=== PATIENT | female | born 1995 ===

== ENCOUNTER 2019-06-26 08:09 | Inpatient (IN) | payer MEDICAID ==
[~2019-06-26 08:09] MED LIST: cefOXitin 2 GM Vial ONE
[2019-06-26] MEDS ORDERED: cefOXitin 2 GM in Sodium Chloride 0.9% 100 ML IV ONE (08:30)
[2019-06-26] MEDS ORDERED: Scopolamine 1.5 MG Transdermal Patch TOP ONE (08:40)
[2019-06-26] MEDS ORDERED: Acetaminophen 500 MG Tab PO ONE (08:40)
[2019-06-26] MEDS ORDERED: Celecoxib 200 MG Cap PO ONE (08:40)
[2019-06-26] MEDS ORDERED: Gabapentin 300 MG Cap PO ONE (08:50)
[2019-06-26] MEDS ORDERED: Dextrose 5%-Lactated Ringers 1,000 ML IV SCH ×2 (08:50→14:30)
[2019-06-26 08:59] LABS: HEMOGLOBIN A1C 6.5 % (4.5-6.2)
[2019-06-26] MEDS ORDERED: Propofol 200 MG/20 ML SDV ONE (09:58)
[2019-06-26] MEDS ORDERED: Rocuronium 50 MG/5 ML Vial ONE (09:58)
[2019-06-26] MEDS ORDERED: fentaNYL 250 MCG/5 ML SDV ONE (09:58)
[2019-06-26] MEDS ORDERED: Glycopyrrolate 0.2 MG/ML 5 ML MDV ONE (09:58)
[2019-06-26] MEDS ORDERED: Dexamethasone 4 MG/ML SDV ONE (09:58)
[2019-06-26] MEDS ORDERED: Ondansetron 4 MG/2 ML SDV ONE (09:58)
[2019-06-26] MEDS ORDERED: Midazolam 1 MG/ML 2 ML SDV ONE (09:58)
[2019-06-26] MEDS ORDERED: Neostigmine Methylsulfate 1 MG/ML 5 ML Syringe ONE (09:58)
[2019-06-26] MEDS ORDERED: Succinylcholine 200 MG/10 ML MDV ONE (09:58)
[2019-06-26] MEDS ORDERED: cefOXitin 2 GM in Sodium Chloride 0.9% 50 ML IV ONE (10:00)
[2019-06-26] MEDS ORDERED: Ketamine 50 MG in Sodium Chloride 0.9% 49.5 ML IV SCH (10:15)
[2019-06-26] MEDS ORDERED: Lidocaine 2% 100 MG/5 ML Syringe IVPUSH SCH (10:15)
[2019-06-26] MEDS ORDERED: Ketamine 500 MG/5 ML MDV IV SCH (10:15)
[2019-06-26] MEDS ORDERED: hydrOXYzine HCL 100 MG/2 ML SDV IM ONE (12:22)
[2019-06-26] MEDS ORDERED: fentaNYL 100 MCG/2 ML SDV IVPUSH ONE ×2 (12:22→12:53)
[2019-06-26] MEDS ORDERED: Ondansetron 4 MG/2 ML SDV IVPUSH ONE (12:23)
[2019-06-26] MEDS: Lidocaine 0.4%/D5W 2 GM/500 ML BAG IV SCH (14:12)
[2019-06-26] MEDS ORDERED: Metoclopramide 10 MG/2 ML SDV IVPUSH PRN (14:20)
[2019-06-26] MEDS ORDERED: diphenhydrAMINE 50 MG/ML SDV IVPUSH PRN (14:20)
[2019-06-26] MEDS ORDERED: hydrOXYzine HCL 100 MG/2 ML SDV IM PRN (14:20)
[2019-06-26] MEDS ORDERED: Ondansetron 4 MG/2 ML SDV IVPUSH PRN (14:20)
[2019-06-26] MEDS: HYDROmorphone 1 MG/ML Syringe IV PRN ×2 (14:32→16:59)
[2019-06-26] MEDS: Labetalol 20 MG/4 ML Syringe IVPUSH PRN ×5 (14:47→16:44)
[2019-06-26] MEDS: Heparin Sodium 5,000 Units/ML Vial SUBCUT SCH (16:41)
[2019-06-26] MEDS: Acetaminophen Soln 650 MG/20.3 ML UD Cup PO SCH ×2 (16:41→21:45)
[2019-06-26] MEDS: Pantoprazole 40 MG Vial IVPUSH SCH (16:45)
[2019-06-26] MEDS: cefOXitin 2 GM in Sodium Chloride 0.9% 50 ML IV SCH ×2 (16:52→21:45)
[2019-06-26] MEDS: MVI, Adult with Vitamin K 10 ML, Thiamine 200 MG, Chromium/Copper/Mang/Selen/Zn 1 ML in... IV SCH ×4 (16:53)
[2019-06-26] MEDS: Insulin Lispro 100 Unit/ML 3 ML KwikPen SUBCUT PRN ×2 (17:12→21:46)
[2019-06-26] MEDS ORDERED: hydrALAZINE 20 MG/ML SDV IVPUSH PRN (18:54)
[2019-06-26] MEDS: metFORMIN 500 MG/5 ML PO SCH (19:25)
--- NOTE | 2019-06-26 19:48 | PCM.CONS ---
H&P History of Present Illness - General Date of Service: 06/26/19 Admit Problem/Dx: Admission Diagnosis/Problem Admission Diagnosis/Problem Keira-en-Y gastrojejunostomy Source of Information: Patient, Provider, RN Notes Reviewed History Limitations: Reports: No Limitations - History of Present Illness Initial Comments - Free Text/Narative: Ms. Rosa is a 23-year-old woman who I been asked to see by Dr. Shah for recommendations concerning postoperative hypertension. Ms. Rosa underwent Keira -en-Y gastric bypass surgery earlier today by Dr. Shah. During the postoperative period she has been noted to have significant hypertension, especially diastolic levels. She reports history of 2 previous surgeries and in the immediate postoperative period also experienced hypertension with those 2 procedures. She otherwise feels well reports that her pain control is very good. She is not experiencing any neurologic symptoms, chest pain, or shortness of breath. Abdomen Pain Score (Numeric/FACES): 7 - Related Data Allergies/Adverse Reactions: Allergies Allergy/AdvReac Type Severity Reaction Status Date / Time Penicillins Allergy Hives Verified 06/26/19 08:33 Home Medications: Home Meds Exenatide [Byetta] 10 mcg SQ BID 06/19/16 [History] Biotin 0.5 gm MC DAILY 06/23/19 [History] Cholecalciferol (Vitamin D3) [Vitamin D3] 3,000 unit PO DAILY 06/23/19 [History] Insulin NPH Human Isophane [Novolin N] 15 unit SQ BID 06/23/19 [History] Magnesium Oxide 250 mg PO DAILY 06/23/19 [History] Multivitamin [Multi-Vitamin Daily] 1 each PO DAILY 06/23/19 [History] Pregabalin [Lyrica] 150 mg PO BID 06/23/19 [History] Rosuvastatin [Crestor] 5 mg PO DAILY 06/23/19 [History] hydrOXYzine HCL [Hydroxyzine HCl] 10 mg PO TID PRN 06/23/19 [History] metFORMIN [Glucophage] 1,000 mg PO BIDMEALS 06/23/19 [History] Celecoxib [CeleBREX] 200 mg PO DAILY 06/26/19 [History] Past Medical History HEENT History: Reports: Impaired Vision Cardiovascular History: Reports: None Respiratory History: Reports: None Gastrointestinal History: Reports: None Genitourinary History: Reports: None GUT CLEANER History: Reports: None Musculoskeletal History: Reports: Back Pain, Chronic Neurological History: Reports: None Psychiatric History: Reports: Anxiety, Depression Endocrine/Metabolic History: Reports: Diabetes, Type II, Obesity/BMI 30+ Hematologic History: Reports: None Immunologic History: Reports: None Oncologic (Cancer) History: Reports: None Dermatologic History: Reports: None - Infectious Disease History Infectious Disease History: Reports: None - Past Surgical History HEENT Surgical History: Reports: None Cardiovascular Surgical History: Reports: None Respiratory Surgical History: Reports: None GI Surgical History: Reports: None Female Surgical History: Reports: None Neurological Surgical History: Reports: Laminectomy Musculoskeletal Surgical History: Reports: None Dermatological Surgical History: Reports: None Social & Family History - Family History Family Medical History: Noncontributory Cardiac: Reports: Hypertension Respiratory: Reports: None Psychiatric: Reports: Depression Endocrine/Metabolic: Reports: Diabetes, type II Oncologic: Reports: Cervix - Tobacco Use Smoking Status *Q: Former Smoker Used Tobacco, but Quit: Yes Month/Year Tobacco Last Used: 03/2019 - Caffeine Use Caffeine Use: Reports: None - Recreational Drug Use Recreational Drug Use: No H&P Review of Systems - Review of Systems: Review Of Systems: See Below Pulmonary: Reports: No Symptoms Cardiovascular: Reports: No Symptoms Gastrointestinal: Reports: Abdominal Pain. Denies: Constipation, Diarrhea, Difficulty Swallowing, Distension, Hematemesis, Hematochezia, Melena, Nausea, Vomiting Genitourinary: Reports: No Symptoms Exam - Exam Exam: See Below - Vital Signs Vital Signs: Last Vital Signs Temp 99.1 F 06/26/19 19:26 Pulse 112 H 06/26/19 19:26 Resp 18 06/26/19 19:26 BP 130/76 06/26/19 19:26 Pulse Ox 93 L 06/26/19 19:26 Weight: 291 lb - Exam General: Alert, Oriented, Cooperative, Mild Distress Neck: Supple, Trachea Midline, +2 Carotid Pulse wo Bruit Lungs: Clear to Auscultation, Normal Respiratory Effort Cardiovascular: Regular Rate, Regular Rhythm, Normal S1, Normal S2. No: Systolic Murmur, Diastolic Murmur GI/Abdominal Exam: Soft, No Organomegaly, Tender. No: Distended, Guarding, Rigid, Rebound Extremities: Non-Tender, No Pedal Edema - Patient Data Lab Results Last 24 hrs: Laboratory Results - last 24 hr 06/26/19 06/26/19 06/26/19 Range/Units 08:27 08:43 08:43 WBC 10.6 (4.5-11.0) K/uL RBC 4.76 (3.30-5.50) M/uL Hgb 15.2 H (12.0-15.0) g/dL Hct 45.0 (36.0-48.0) % MCV 95 (80-98) fL MCH 32 H (27-31) pg MCHC 34 (32-36) % Plt Count 297 (150-400) K/uL Sodium 139 L (140-148) mmol/L Potassium 4.0 (3.6-5.2) mmol/L Chloride 104 (100-108) mmol/L Carbon Dioxide 24 (21-32) mmol/L Anion Gap 15.0 H (5.0-14.0) mmol/L BUN 9 (7-18) mg/dL Creatinine 0.8 (0.6-1.0) mg/dL Est Cr Clr Drug Dosing 92.83 mL/min Estimated GFR (MDRD) > 60 (>60) Glucose 233 H (74-106) mg/dL Hemoglobin A1c (4.5-6.2) % Calcium 8.8 (8.5-10.1) mg/dL Phosphorus 4.1 (2.5-4.9) mg/dL Magnesium 1.8 (1.8-2.4) mg/dL Total Bilirubin 0.3 (0.2-1.0) mg/dL AST 12 L (15-37) U/L ALT 37 (12-78) U/L Alkaline Phosphatase 68 (46-116) U/L Total Protein 7.3 (6.4-8.2) g/dL Albumin 3.2 L (3.4-5.0) g/dL Globulin 4.1 H (2.3-3.5) g/dL Albumin/Globulin Ratio 0.8 L (1.2-2.2) Urine HCG, Qual Negative Blood Type Gel Antibody Screen 06/26/19 06/26/19 Range/Units 08:43 08:43 WBC (4.5-11.0) K/uL RBC (3.30-5.50) M/uL Hgb (12.0-15.0) g/dL Hct (36.0-48.0) % MCV (80-98) fL MCH (27-31) pg MCHC (32-36) % Plt Count (150-400) K/uL Sodium (140-148) mmol/L Potassium (3.6-5.2) mmol/L Chloride (100-108) mmol/L Carbon Dioxide (21-32) mmol/L Anion Gap (5.0-14.0) mmol/L BUN (7-18) mg/dL Creatinine (0.6-1.0) mg/dL Est Cr Clr Drug Dosing mL/min Estimated GFR (MDRD) (>60) Glucose (74-106) mg/dL Hemoglobin A1c 6.5 H (4.5-6.2) % Calcium (8.5-10.1) mg/dL Phosphorus (2.5-4.9) mg/dL Magnesium (1.8-2.4) mg/dL Total Bilirubin (0.2-1.0) mg/dL AST (15-37) U/L ALT (12-78) U/L Alkaline Phosphatase (46-116) U/L Total Protein (6.4-8.2) g/dL Albumin (3.4-5.0) g/dL Globulin (2.3-3.5) g/dL Albumin/Globulin Ratio (1.2-2.2) Urine HCG, Qual Blood Type B POSITIVE Gel Antibody Screen Negative Result Diagrams: 06/26/19 08:43 06/26/19 08:43 Sepsis Event Note - Evaluation Sepsis Screening Result: No Definite Risk - Focused Exam Vital Signs: Vital Signs Temp Pulse Resp BP BP Pulse Ox Pulse Ox 06/26/19 19:26 99.1 F 112 H 18 130/76 93 L 06/26/19 18:09 99.0 F 110 H 18 138/107 H 98 06/26/19 17:54 105 H 18 131/89 98 06/26/19 17:39 100 16 144/91 H 98 06/26/19 17:24 95 18 152/98 H 97 06/26/19 17:09 99.4 F 96 19 148/107 H 98 06/26/19 16:54 100 18 161/106 H 95 06/26/19 16:44 99.4 F 105 H 18 162/102 H 06/26/19 16:39 102 H 18 153/101 H 98 06/26/19 16:24 94 18 169/104 H 98 06/26/19 16:14 97.7 F 105 H 16 164/101 H 97 06/26/19 15:39 100.0 F 95 16 166/108 H 98 06/26/19 15:23 100.0 F 92 16 159/97 H 98 06/26/19 15:05 99 16 148/99 H 95 06/26/19 14:53 94 16 156/105 H 97 06/26/19 14:47 99.2 F 94 16 159/105 H 97 06/26/19 14:36 94 L 06/26/19 14:24 78 16 153/104 H 90 L 06/26/19 14:17 95 06/26/19 14:09 82 18 153/104 H 94 L 06/26/19 13:57 77 16 169/110 H 98 06/26/19 13:39 98.3 F 89 16 158/98 H 98 06/26/19 13:20 96.6 F 82 20 153/97 H 96 06/26/19 13:15 88 20 150/97 H 93 L 06/26/19 13:10 79 20 152/98 H 96 06/26/19 13:05 66 20 142/91 H 92 L 06/26/19 13:00 74 20 153/93 H 93 L 06/26/19 12:55 66 18 150/96 H 93 L 06/26/19 12:50 73 16 148/104 H 94 L 06/26/19 12:45 74 18 151/101 H 93 L 06/26/19 12:40 79 20 158/103 H 95 06/26/19 12:35 90 16 165/97 H 94 L 06/26/19 12:30 77 18 166/98 H 98 06/26/19 12:25 83 18 171/100 H 98 06/26/19 12:20 96.8 F 97 24 H 156/93 H 95 06/26/19 09:08 97.2 F 85 16 151/98 H 96 Date Exam was Performed: 06/26/19 Time Exam was Performed: 19:48 Consult PN Assessment/Plan Procedures: Procedures BLOOD TYPING SEROLOGIC ABO (11/13/18) BLOOD TYPING SEROLOGIC RH(D) (11/13/18) EMERGENCY DEPT VISIT (06/19/16) RBC ANTIBODY SCREEN (11/13/18) ROUTINE VENIPUNCTURE (11/13/18) THER/PROPH/DIAG INJ SC/IM (06/19/16) URINALYSIS AUTO W/SCOPE (06/19/16) URINE TEST (06/19/16) Problem List Initiated/Reviewed/Updated: Yes My Orders Last 24 Hours: My Active Orders 06/26/19 18:54 hydrALAZINE [Apresoline] 5 mg IVPUSH Q2H PRN Plan: ASSESSMENT AND RECOMMENDATIONS POSTOPERATIVE HYPERTENSION-history of similar reaction during the immediate postoperative period with 2 previous surgeries. She is otherwise asymptomatic and reports good pain control. -Hydralazine 5 mg IV every 2 hours as needed for systolic pressure greater than 160 and/or diastolic pressure greater than 104. STATUS POST GASTRIC BYPASS SURGERY -Postop care per Dr. Shah Requesting Provider: CHRISTINA Date Consult Requested: 06/26/19 Reason for Consult: Postoperative hypertension Patient History Reviewed: Yes
[2019-06-27] MEDS ORDERED: Iopamidol 510 MG/ML 50 ML SDV PO ONE (00:42)
[2019-06-27] MEDS ORDERED: Iopamidol 612 MG/ML 50 ML SDV PO ONE (02:06)
--- NOTE | 2019-06-27 03:43 | CRLCR ---
INDICATION: Rule out leak after gastric bypass. FINDINGS: Contrast administered without radiologist present. First image shows contrast in the esophagus and extending just through the anastomosis into the Keira loop with subsequent images showing contrast progressing into the small bowel past the anastomosis and surgical drain without evidence for leak. Visualized bowel gas pattern is nonobstructive. Some likely atelectasis at the left lung base. Small amount of peritoneal air under both hemidiaphragms. Dictated by Maxime Albert MD @ Jun 27 2019 3:41AM Signed by Dr. Maxime Albert @ Jun 27 2019 3:41AM
[2019-06-27] MEDS: Acetaminophen Soln 650 MG/20.3 ML UD Cup PO SCH ×4 (04:12→21:21)
[2019-06-27] MEDS: cefOXitin 2 GM in Sodium Chloride 0.9% 50 ML IV SCH ×3 (04:12→15:24)
[2019-06-27] MEDS: Heparin Sodium 5,000 Units/ML Vial SUBCUT SCH ×2 (04:14→15:25)
[2019-06-27] MEDS: Insulin Lispro 100 Unit/ML 3 ML KwikPen SUBCUT PRN ×2 (04:14→11:13)
[2019-06-27] MEDS: Lactated Ringers 1,000 ML IV SCH ×2 (04:26→14:24)
[2019-06-27] MEDS: Celecoxib 200 MG Cap PO SCH (08:22)
[2019-06-27] MEDS: SCOPOLAMINE PATCH CHECK TOP SCH (08:23)
[2019-06-27] MEDS: metFORMIN 500 MG/5 ML PO SCH ×2 (08:23→17:39)
[2019-06-27] MEDS: Lidocaine 0.4%/D5W 2 GM/500 ML BAG IV SCH (10:41)
[2019-06-27] MEDS ORDERED: Lactated Ringers 1,000 ML IV SCH (14:15)
[2019-06-27] MEDS: Pantoprazole 40 MG Vial IVPUSH SCH (15:23)
[2019-06-27] MEDS: MVI, Adult with Vitamin K 10 ML, Thiamine 200 MG, Chromium/Copper/Mang/Selen/Zn 1 ML in... IV SCH ×4 (15:25)
[2019-06-27] MEDS: HYDROmorphone 0.5 MG/0.5 ML Syringe IVPUSH PRN (19:48)
[2019-06-27] MEDS: Pregabalin 75 MG Cap PO SCH (21:21)
[2019-06-28] MEDS: Lactated Ringers 1,000 ML IV SCH (02:14)
[2019-06-28] MEDS: HYDROmorphone 0.5 MG/0.5 ML Syringe IVPUSH PRN (02:20)
[2019-06-28] MEDS: Heparin Sodium 5,000 Units/ML Vial SUBCUT SCH ×2 (03:36→16:05)
[2019-06-28] MEDS: Acetaminophen Soln 650 MG/20.3 ML UD Cup PO SCH ×4 (03:38→21:21)
[2019-06-28] MEDS ORDERED: Sodium Chloride 0.9% 10 ML Syringe IV SCH (08:00)
[2019-06-28] MEDS ORDERED: Cyanocobalamin (Vitamin B12) 1,000 MCG/ML SDV IM ONE (09:00)
[2019-06-28] MEDS ORDERED: Pneumococcal Polyvalent-23 Vaccine 0.5 ML SDV IM ONE (09:00)
[2019-06-28] MEDS: metFORMIN 500 MG/5 ML PO SCH ×2 (09:12→16:15)
[2019-06-28] MEDS: Celecoxib 200 MG Cap PO SCH (09:12)
[2019-06-28] MEDS: SCOPOLAMINE PATCH CHECK TOP SCH (09:12)
[2019-06-28] MEDS: Pregabalin 75 MG Cap PO SCH ×2 (09:18→21:21)
[2019-06-28] MEDS: HYDROmorphone 2 MG Tab PO PRN (14:06)
[2019-06-28] MEDS ORDERED: Pantoprazole 40 MG Delayed-Release Granules 1 Packet PO SCH (16:30)
[2019-06-29] MEDS: Heparin Sodium 5,000 Units/ML Vial SUBCUT SCH ×2 (03:38→15:22)
[2019-06-29] MEDS: Acetaminophen Soln 650 MG/20.3 ML UD Cup PO SCH ×3 (03:39→15:22)
[2019-06-29] MEDS ORDERED: Ondansetron 4 MG Tab.DIS PO PRN (07:25)
[2019-06-29] MEDS ORDERED: metFORMIN 500 MG Tab PO SCH (08:00)
[2019-06-29] MEDS: HYDROmorphone 2 MG Tab PO PRN (08:50)
[2019-06-29] MEDS: Celecoxib 200 MG Cap PO SCH (08:54)
[2019-06-29] MEDS: Pregabalin 75 MG Cap PO SCH (08:58)
[2019-06-29 10:55] VITALS: BP 127/75; PULSE 91
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
--- NOTE | 2019-06-29 11:36 | PN ---
DATE OF SERVICE: 06/27/2019 The patient is postop day #1 from a laparoscopic Keira-en-Y gastric bypass, along with liver biopsy and repair of paraesophageal diaphragmatic hernia. Clinically, she has done fairly well. We started her on metformin yesterday and blood sugars are still running in the 200s. We will get rid of the sugar in the IV today, and I think we will leave her on her baseline diabetic treatment, along with coverage, and I suspect the blood sugars will come down over the next day or so. Otherwise will go to a step 2 diet. Her upper GI x-ray looked good. Maximize activity and work with pulmonary toilet. Hi Shah MD /[id number]
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
--- NOTE | 2019-07-06 10:46 | OR ---
DATE OF PROCEDURE: 06/26/2019 SURGEON: Hi Shah MD PREOPERATIVE DIAGNOSIS: Morbid obesity. POSTOPERATIVE DIAGNOSES: 1. Morbid obesity. 2. Hepatomegaly. 3. Paraesophageal diaphragmatic hernia. 4. Mediastinal lipoma. OPERATIVE PROCEDURES: Diagnostic laparoscopy with: 1. Laparoscopic Keira-en-Y gastric bypass with long limb gastroenterostomy (68808). 2. Derek-Cut needle liver biopsy (10276). 3. Repair of paraesophageal diaphragmatic hernia (38245). 4. Excision of mediastinal lipoma (86643). ANESTHESIA: General. SPRING FITTER HELPER: Sue Saeed PA-C INDICATIONS FOR PROCEDURE: This is a 23-year-old female presenting with longstanding morbid obesity and increasingly significant comorbidities. After preoperative evaluation and discussion, she wished to proceed with a gastric bypass procedure. Potential risks of procedure including bleeding, infection, leaks from the GI tract closure with possible bowel obstruction over time, as well as incomplete relief of reflux symptoms, were all reviewed, and the patient wishes to proceed. DETAILS OF PROCEDURE: The patient was taken to the operating room, placed in a supine position. After general endotracheal anesthesia was induced, she was converted to a lithotomy position, and the abdomen was prepped and draped. At 15 cm inferior and 5 cm left of the xiphoid process, a transverse incision was made. Peritoneal cavity was entered under direct vision with an Optiview trocar, inflated to 15 mmHg pressure with CO2. Laparoscope was reinserted. No underlying trocar insertion site injuries were seen. Bilateral transversus abdominis plane blocks were then placed, and 5 additional trocars were placed across the upper mid abdomen. Initial examination showed the liver to be markedly fatty infiltrated and roughly 3 to 4 times normal, and Derek-Cut needle biopsy was obtained from the left lobe of the liver. Minimal bleeding from biopsy sites was controlled with electrocautery. The omentum was then divided in the midline up to the level of the transverse colon. This allowed identification of the small bowel to the ligament of Treitz. Small bowel was then traced out 225 cm distal to that point, where it was divided transversely with a GEREMIAS stapler. The Keira limb was then fashioned at 150 cm. At that point, a [id number] enteroenterostomy was accomplished with internal firing of the Endo-GEREMIAS 60 mm stapler. Common opening was closed transversely with the same stapler, and the angles anastomosed and mesenteric defect was approximated with 0 Ethibond stitch, along with 4 mL of fibrin sealant. Divided end of the Keira limb was then from the mesentery for a few centimeters, which allowed an antecolic position of the Keira limb up to the level of the gastroesophageal junction without tension. The liver was then retracted anteriorly, and the patient was noted to have moderate-sized paraesophageal diaphragmatic hernia containing some perigastric fat and fundus of the stomach. This was retracted down along the course of the esophagus, and Keira limb was reduced. The peritoneum overlying was incised and reflected downward. During the course of the mediastinal dissection, a lipoma was identified, and this was excised and sent as separate specimen. The diaphragmatic repair was then accomplished with 0 Ethibond sutures reinforced with PTFE pledgets in an anterior location. The gastrointestinal balloon catheter was then inflated to 15 mL and pulled up snugly against the EG junction. Gastric wall over the apex of the balloon was then marked with electrocautery, and balloon catheter was deflated and pulled up into the esophagus. The lesser omental tissue adjacent to gastric pouch was then incised, allowing dissection behind the stomach at that level. Pouch formation was initiated with a transversely oriented GEREMIAS stapler at the level of the cauterized lissett at the gastric cardia and then completed with two additional firings of the GEREMIAS stapler up to and through the angle of His. Upon completion of the pouch, both staple lines were noted to be intact. The anvil of a 25 mm EEA stapler was attached to [place] sump type tube, brought down through the mouth, and taken out through a small opening in the gastric pouch, allowing the anvil likewise to be pulled down within the gastric pouch. The end of the Keira limb was then opened and main body of the EEA stapler was passed several centimeters into the lumen of small bowel, brought up to the anvil and united with it, thus creating the gastrojejunostomy. Upon removal of the stapler, double donuts of mucosa were noted within it. The small bowel was closed off with a vascular staple line. Gastrojejunostomy was reinforced with some 3-0 Vicryl seromuscular stitch, along with fibrin sealant. A leak test was accomplished with injection of 120 mL of air into the gastric pouch while it was submerged with cefoxitin-containing saline solution. No leaks were identified. A single Zenon-Salguero drain was then taken out through the left lateral trocar site and positioned adjacent to the gastrojejunostomy and from there up into the splenic fossa. With no further problems noted, trocars were removed and the peritoneal cavity deflated. Incisions were closed with some 4-0 Vicryl skin stitch, which was also used to affix the drain. The patient was taken to the recovery room in satisfactory condition. There were no evident complications. Physician accountant assistant, Sue Saeed PA-C, played an essential role in assisting in this case, helping to position the patient, retract structures as needed, as well as suturing and cutting sutures when indicated. Her presence improved patient safety and decreased the operative time. Hi Shah MD /[id number]
== END 2019-06-29 16:10 | disposition home or self-care (01) | DRG 621 ==
LOC: JP.SDS 08:09 → JP.SDSSCHI 08:09 → EDSTATUS 08:30 → JP.MS 12:20
PROVIDERS: ADMIT Surgery; ATTEND Surgery
PROC: 0D164ZA Bypass Stomach to Jejunum, Percutaneous Endoscopic Approach (ICD-10-PCS; 2019-06-26)
PROC: 0FB24ZX Excision of Left Lobe Liver, Percutaneous Endoscopic Approach, Diagnostic (ICD-10-PCS; 2019-06-26)
PROC: 0JB63ZZ Excision of Chest Subcutaneous Tissue and Fascia, Percutaneous Approach (ICD-10-PCS; 2019-06-26)
PROC: 3E0234Z Introduction of Serum, Toxoid and Vaccine into Muscle, Percutaneous Approach (ICD-10-PCS; principal; 2019-06-28)
DX: E66.01 Morbid (severe) obesity due to excess calories (principal); D17.4 Benign lipomatous neoplasm of intrathoracic organs; K44.9 Diaphragmatic hernia without obstruction or gangrene; R16.0 Hepatomegaly, not elsewhere classified; Z68.42 Body mass index [BMI] 45.0-49.9, adult; E11.65 Type 2 diabetes mellitus with hyperglycemia; I97.3 Postprocedural hypertension; F41.9 Anxiety disorder, unspecified; E28.2 Polycystic ovarian syndrome; M54.16 Radiculopathy, lumbar region; F43.10 Post-traumatic stress disorder, unspecified; E78.00 Pure hypercholesterolemia, unspecified; F41.1 Generalized anxiety disorder; F32.9 Major depressive disorder, single episode, unspecified; Z72.89 Other problems related to lifestyle; Z79.4 Long term (current) use of insulin; Z79.899 Other long term (current) drug therapy; Z88.0 Allergy status to penicillin; Z87.891 Personal history of nicotine dependence; Z23 Encounter for immunization
CPT/HCPCS: 36415; 74240; 80053; 81025; 82962; 83036; 83735; 84100; 85027; 86850; 86900; 86901; 88304; 88307; 88313; 90732; A9270-GY; C9113; J0171; J0330; J0360; J0694; J1100; J1170; J1644; J1815; J1815-GY; J2001; J2250; J2405; J2704; J2710; J2795; J3010; J3410; J3411; J3420; J3490; J7050; J7120; J7121; Q9967